=== PATIENT | female | born 1960 | race Caucasian/White ===

== ENCOUNTER 2024-03-25 14:01 | Outpatient (REF) | payer OTHER, SELFPAY ==
[2024-03-25 15:53] LABS: Vitamin B12 1113 pg/mL (200-900)
== END 2024-03-25 14:02 | disposition home or self-care (01) ==
LOC: HO.LAB 14:01
PROVIDERS: PCP Internal Medicine; Visit Provider Psychiatry & Neurology Neurology
DX: G31.84 Mild cognitive impairment of uncertain or unknown etiology (principal)
CPT/HCPCS: 36415; 82607

== ENCOUNTER 2024-05-06 12:20 | Outpatient (REF) | payer OTHER, SELFPAY ==
[2024-05-06 13:33] LABS: Erythrocyte Sedimentation Rate 48 MM/HR (0-20)
[2024-05-07 20:18] LABS: Lyme Blot 3.57 index
[2024-05-08 10:50] LABS: Lyme Abs Screen POSITIVE
[2024-05-08 19:03] LABS: 18 KD (IgG) Band NON-REACTIVE; 23 KD (IgG) Band NON-REACTIVE; 23 KD (IgM) Band NON-REACTIVE; 28 KD (IgG) Band NON-REACTIVE; 30 KD (IgG) Band NON-REACTIVE; 39 KD (IgM) Band REACTIVE; 39KD (IgG) Band NON-REACTIVE; 41 KD (IgM) Band NON-REACTIVE; 41KD (IgG) Band NON-REACTIVE; 45 KD (IgG) Band NON-REACTIVE; 58 KD (IgG) Band NON-REACTIVE; 66 KD (IgG) Band NON-REACTIVE; 93 KD (IgG) Band NON-REACTIVE; Lyme IgG Blot Interp NEGATIVE (NEGATIVE); Lyme IgM Blot Interp NEGATIVE (NEGATIVE)
== END 2024-05-06 12:21 | disposition home or self-care (01) ==
LOC: HO.LAB 12:20
PROVIDERS: PCP Internal Medicine; Visit Provider Psychiatry & Neurology Neurology
DX: I67.9 Cerebrovascular disease, unspecified (principal)
CPT/HCPCS: 36415; 85652; 86617; 86618